=== PATIENT | male | born 1970 | race Caucasian/White ===

== ENCOUNTER 2024-12-23 09:33 | Emergency (ER) | payer BC ==
[~2024-12-23] VITALS: Ht 188 cm; Wt 94.5 kg
[2024-12-23 09:35] VITALS: BP 178/93; PULSE 68; RESP 15; TEMP 97.7; O2SAT 97
[2024-12-23] MEDS ORDERED: METH4TAB81 PO (10:22)
[2024-12-23] MEDS ORDERED: BACL10TA2 PO (10:22)
--- NOTE | 2024-12-23 10:22 | Physician Documentation ---
History of Present Illness ~ Chief Complaint: Shoulder pain Stated Complaint: L SHOULDER PAIN Time Seen by MD: 10:10 OK to notify your PCP?: Yes Source: patient Mode of Arrival: POV Exam Limitations: no limitations HPI 54 y/o right handed male with left anterior shoulder pain x 1month. Patient is right handed. No injury. Patient is interested in steroid injection in his joint. Pre-arrival treatment with nsaids not helping. Pain is worse with arom of left shoulder-any overhead movement. Medication Reconciliation Allergies: Coded Allergies: No Known Allergies (Unverified , 12/23/24) Scheduled Baclofen (Baclofen), 1 TAB PO Q8H Methylprednisolone (Medrol Dosepak), 0 PO UD Past Medical History Past Medical History: No Pertinent History Past Surgical History: noncontributory Review of Systems All Other Systems at this time: Reviewed and Negative Physical Exam Vital Signs: Temperature: 97.7, Source: Temporal, Heart Rate: 68, Respiratory Rate: 15, BP: 178/93, Pulse Oximetry: 97, Weight: 94.500 Physical Exam GENERAL: Alert, no acute distress. HEENT: NCAT, EOMI, PERRL, normal oropharynx, moist oral mucosa. NECK: Supple, trachea midline. CARDIAC: Regular rate and rhythm, no murmurs, rubs, or gallops. PV: Equal distal pulses. No lower extremity edema, cap refill less than 2 seconds. RESPIRATORY: Equal breath sounds, clear to auscultation bilaterally, no respiratory distress. MUSCULOSKELETAL: TTP OVER ANTERIOR SHOULDER, AROM OF SHOULDER REDUCED TO SHOULDER HEIGHT DUE TO PAIN. Nontender, no swelling. Normal gait. NEUROLOGICAL: Awake, alert, and oriented x 3. SKIN: Warm/dry, no pallor, no rash. PSYCH: Alert and appropriate. Affect congruent with mood. Speech is clear. Good eye contact. Progress Results/Orders Results/Orders Vital Signs 12/23/24 09:35 Temp 97.7 Pulse 68 Resp 15 B/P (MAP) 178/93 Pulse Ox 97 Medical Decision Making Differential Dx:Considerations: Include: AC separation, Adhesive capsulitis, arthritis, Bicipital tendonitis, Calcific tendonitis, Cervical disc disease, Contusion, Dislocation, Fracture: Humerus, Fracture: Scapula, Fracture: Clavicle, Gallbladder Disease, Hematoma, Impingement syndrome, Myocardial infarction, Neurovascular Injury, Rotator cuff injury, SC dislocation, Sprain, Subacromial bursitis Departure Time of Disposition: 19:27 Disposition: 01 HOME / SELF CARE / HOMELESS Impression: Primary Impression: Shoulder pain Qualified Codes: M25.511 - Pain in right shoulder Condition: Stable Discharge Instructions: Shoulder Pain, [id number] Additional Instructions: Your shoulder pain is most consistent with bursitis considering how the pain started in the location of the pain. If pain does not improve I recommend more advanced imaging and since you report you can not get an MRI due to metal from previous injury discuss CT scan with your PCP or referral to orthopedist. Referrals: NO PRIMARY CARE PROVIDER (PCP) Prescriptions Baclofen (Baclofen) 10 Mg Tablet 1 TAB PO Q8H for 5 Days, #15 TAB 0 Refills Prov: ANDREW WALLIS 12/23/24 Methylprednisolone (Medrol Dosepak) 4 Mg Tab.ds.pk 0 PO UD, #21 TAB 0 Refills take 6 Pills Day 1, 5 Pills Day 2, 4 Pills Day 3, 3 Pills Day 4, 2 Pills Day 5 and 1 pill Day 6 Prov: ANDREW WALLIS 12/23/24 Education Educated: Patient Educated regarding: diagnosis, treatment, need for follow up Signature Scribe Signature: x Attestation: ANDREW Corona Dec 23, 2024 10:22
== END 2024-12-23 10:30 | disposition home or self-care (01) ==
LOC: ER 09:34
DX: M25.512 Pain in left shoulder (principal); Z79.899 Other long term (current) drug therapy
CPT/HCPCS: 99283